=== PATIENT | female | born 1960 | race Caucasian/White ===

== ENCOUNTER 2016-12-24 09:55 | Inpatient (IN) | payer BC ==
[~2016-12-24] VITALS: Ht 172.7 cm; Wt 94.3 kg
[2016-12-24] MEDS ORDERED: NYSTATIN (10:24)
[2016-12-24] MEDS ORDERED: OXYC-128 PO (10:24)
[2016-12-24] MEDS ORDERED: HYDR200T PO (10:24)
[2016-12-24 10:27] LABS: BASOPHILS # (AUTO) 0.1 K/uL (0.0-8.0); BASOPHILS % (AUTO) 0.8 % (0.0-2.0); EOSINOPHILS # (AUTO) 0.1 K/uL (0.0-0.7); EOSINOPHILS % (AUTO) 1.5 % (0.0-7.0); HEMATOCRIT 38.6 % (37-47); HEMOGLOBIN 12.7 G/DL (12.0-16.0); LYMPHOCYTES # (AUTO) 3.6 K/UL (0.8-4.8); MEAN CORPUSCULAR HEMOGLOBIN 31.5 UUG (27.0-31.0); MEAN CORPUSCULAR HGB CONC 33 g/dL (32.0-37.0); MEAN CORPUSCULAR VOLUME 95.4 FL (81.0-99.0); MONOCYTES # (AUTO) 0.9 K/UL (0.1-1.30); MONOCYTES % (AUTO) 9.2 % (0.0-11.0); NEUTROPHILS # (AUTO) 4.8 K/UL (1.8-8.9); NEUTROPHILS % (AUTO) 50.5 % (38.5-71.5); PLATELET COUNT (AUTO) 198 K/UL (150-450); RED BLOOD CELL COUNT(AUTO) 4.04 MIL/UL (4.2-5.4); WHITE BLOOD COUNT (AUTO) 9.4 K/UL (4.0-11.2)
--- NOTE | 2016-12-24 10:39 | NUR ---
Patient is AOx4, c/o tolerable upper back pains after changing to upright position, refusing pain medicines at this time. Comfort and safety measures maintained.
[2016-12-24 10:41] LABS: CREATININE 0.9 mg/dL (0.6-1.3); POTASSIUM 3.9 mmol/L (3.5-5.1)
[2016-12-24 10:46] LABS: BILIRUBIN,DIRECT 0.1 mg/dL (0.0-0.2); BILIRUBIN,TOTAL 0.3 mg/dL (0.2-1.0); TOTAL PROTEIN, SERUM 6.5 g/dL (6.4-8.2)
[2016-12-24] MEDS ORDERED: ONDANSETRON 4 MG/2 ML VIAL IV PRN (11:30)
[2016-12-24] MEDS ORDERED: ALBUTEROL SULFATE 2.5 MG/ 0.5 ML NEBU NEB PRN ×2 (11:30→11:45)
[2016-12-24] MEDS ORDERED: MORPHINE SULFATE 2 MG/1 ML DISP.SYRIN IV PRN ×2 (11:30→11:45)
[2016-12-24] MEDS ORDERED: IPRATROPIUM BROMIDE 0.5 MG/2.5 ML NEBU NEB PRN ×2 (11:30→11:45)
[2016-12-24] MEDS ORDERED: LEVOFLOXACIN 500 MG/D5W 100ML PIGGYBACK IV ONE ×2 (11:30)
[2016-12-24] MEDS ORDERED: OXYCODONE/APAP 5-325 MG TABLET PO PRN ×2 (11:30→11:45)
[2016-12-24] MEDS ORDERED: ACETAMINOPHEN 325 MG TABLET PO PRN ×2 (11:30→11:45)
--- NOTE | 2016-12-24 11:34 | NUR ---
Patient requested oxygen, notified
--- NOTE | 2016-12-24 11:45 | NUR ---
Admitted a 56 year old female patient from [facility] under the service of Dr. Todd Short with admitting diagnosis of Pneumothorax and Pleural Effusion, who was transported by ER staff on a hospital bed in stable condition with BP: 115/70 mmHg, Heart rate: 79, Temperature: 98.3 F. all admission orders were clarified and verified from Sandra Orozco NP, noted and carried out. All needs were attended and anticipated. call light placed within reach. patient was oriented to hospital room. Patient was accompanied by her friend. No SOB, distress at this time. Will continue to monitor.
[2016-12-24 11:58] VITALS: BP 121/68
--- NOTE | 2016-12-24 12:30 | NUR ---
PATIENT ADMITTED WITH INCISION SITES ON BOTH LATERAL CHEST WITH JOSUÉ BRAY DRAIN WITH SEROSANGUINEOUS DRAINAGE, NOTED DRY DRESSING. PATIENT REFUSED DRESSING CHANGE EXPLAINED RISKS AND BENEFITS STILL PATIENT REFUSED DRESSING CHANGE AND PHOTO TO BE TAKEN. CHARGE NURSE NOTIFIED. WILL INFORM INCOMING SHIFT.
[2016-12-24] MEDS ORDERED: NITROGLYCERIN 0.4 MG/TAB BOTTLE SL PRN (12:45)
[2016-12-24] MEDS: LEVOFLOXACIN 500 MG/D5W 500 MG in PREMIXED 1 EACH IV SCH (13:31)
[2016-12-24] MEDS ORDERED: MAGNESIUM HYDROXIDE 30 ML LIQUID UDC PO ONE (14:15)
--- NOTE | 2016-12-24 14:25 | NUR ---
Spoke to Dr. Melecio Rodriguez's office regarding transferring patient back to [facility]. Waiting to see if Dr. Rodriguez will be willing to be the admitting physician upon transfer.
--- NOTE | 2016-12-24 14:43 | NUR ---
Spoke to admitting at [facility] and Dr. Rodriguez is accepting patient back upon transfer. However telemetry bed will most likely not be available today.Clinicals faxed to , personal service workers--Marli. Contact number
--- NOTE | 2016-12-24 15:36 | NUR ---
Referred by diet office to visit patient, as family request to speak with dietitian. Obtained food preferences,will honor. Patient is gluten free,diet has been modified at [facility] [place]. Per JOSEPH notes, plan is to transfer to [facility]. Diet: regular/gluten free Anthropometry:current weight 208lb, BMI 31.6 Will monitor PO intake,wt,labs Addendum: 12/24/16 at [address] Amended: Links added.
[2016-12-24] MEDS: HYDROMORPHONE 1 MG/1 ML DISP.SYRIN IV PRN ×2 (15:41→20:02)
[2016-12-24] MEDS: DOCUSATE SODIUM 100 MG CAPSULE PO SCH ×2 (15:46→20:02)
--- NOTE | 2016-12-24 15:57 | NUR ---
Patient has decided to stay here at [facility] per the reccommedation of her MD, Dr. Melecio Rodriguez as well as our hospitalist. Patient is feeling much better now that she has received her Dilaudid. Notified Maria Eugenia at [facility], [facility]. Spoke to both patients daughter and long time friend. Agreeable to plan at this time.
[2016-12-24] MEDS ORDERED: HYDROXYCHLOROQUINE SULFATE 200 MG TABLET PO SCH ×2 (17:00)
[2016-12-24 17:02] VITALS: BP 101/64
--- NOTE | 2016-12-24 18:58 | NUR ---
Patient alert and oriented lying on bed on a semi- maldonado's position, no complaints of pain at this time, no SOB noted. All needs were attended and anticipated. Call light placed within reach. Encouraged patient to use call light whenever assistance is needed. Will endorse to incoming shift.
[2016-12-24] MEDS ORDERED: ALBUTEROL SULFATE 2.5 MG/3 ML NEBU NEB SCH (19:30)
[2016-12-24] MEDS: ALBUTEROL SULFATE 2.5 MG/ 0.5 ML NEBU NEB SCH (19:51)
[2016-12-24] MEDS: IPRATROPIUM BROMIDE 0.5 MG/2.5 ML NEBU NEB SCH (19:51)
--- NOTE | 2016-12-24 20:00 | NUR ---
Patient in bed awake alert & oriented no SOB denies chest pain. Stil c/o bilateral breast incision site discomfort 10/10 pain level. JONAH drains x2 intact, noted serosanguinous moderate output. Telemetry shows normal sinus rhtyhm, vital signs are stable stable.
[2016-12-24] MEDS: ONDANSETRON 4 MG/2 ML VIAL IV PRN (20:02)
[2016-12-24] MEDS: HYDROXYCHLOROQUINE SULFATE 200 MG TABLET PO SCH (20:04)
[2016-12-24 20:15] VITALS: BP 134/78
[2016-12-24] MEDS: OXYCODONE/APAP 5-325 MG TABLET PO PRN (21:52)
[2016-12-25 00:22] VITALS: BP 150/72
--- NOTE | 2016-12-25 03:50 | NUR ---
Awake, assisted to the bathroom & patient voided. Exertional SOB noted. Assisted back to bed & paged RT. Breathing treatment provided. Tele sinus rhythm.
[2016-12-25 04:32] VITALS: BP 156/78
[2016-12-25] MEDS: PANTOPRAZOLE SODIUM 40 MG TABLET.DR PO SCH (06:22)
[2016-12-25] MEDS: ONDANSETRON 4 MG/2 ML VIAL IV PRN (06:54)
[2016-12-25] MEDS: HYDROMORPHONE 1 MG/1 ML DISP.SYRIN IV PRN ×5 (06:54→23:38)
--- NOTE | 2016-12-25 07:00 | NUR ---
Assisted w/ all needs. Medicated for pain PRN. Sinus rhythm on the monitor.
--- NOTE | 2016-12-25 07:00 | NUR ---
Pt is sitting in bed comfortably. No s/s of respiratory distress noted. No pain noted. Iv intact/patent. All safety needs are met. Pt is alert and oriented x 3, pt is noted to be anxious.
[2016-12-25] MEDS: IPRATROPIUM BROMIDE 0.5 MG/2.5 ML NEBU NEB SCH ×3 (07:12→22:28)
[2016-12-25] MEDS: ALBUTEROL SULFATE 2.5 MG/ 0.5 ML NEBU NEB SCH ×3 (07:12→22:28)
[2016-12-25] MEDS: HYDROXYCHLOROQUINE SULFATE 200 MG TABLET PO SCH ×2 (09:00→20:12)
[2016-12-25] MEDS: DOCUSATE SODIUM 100 MG CAPSULE PO SCH ×2 (09:28→20:10)
[2016-12-25 09:32] LABS: BASOPHILS % (AUTO) 0.7 % (0.0-2.0); EOSINOPHILS # (AUTO) 0.1 K/uL (0.0-0.7); EOSINOPHILS % (AUTO) 2.5 % (0.0-7.0); HEMOGLOBIN 12.8 G/DL (12.0-16.0); LYMPHOCYTES # (AUTO) 2.3 K/UL (0.8-4.8); LYMPHOCYTES % (AUTO) 39.7 % (20.5-51.5); MEAN CORPUSCULAR HEMOGLOBIN 32.1 UUG (27.0-31.0); MEAN CORPUSCULAR HGB CONC 34 g/dL (32.0-37.0); MEAN CORPUSCULAR VOLUME 95.6 FL (81.0-99.0); MONOCYTES # (AUTO) 0.5 K/UL (0.1-1.30); MONOCYTES % (AUTO) 8.3 % (0.0-11.0); NEUTROPHILS # (AUTO) 2.8 K/UL (1.8-8.9); NEUTROPHILS % (AUTO) 48.8 % (38.5-71.5); PLATELET COUNT (AUTO) 188 K/UL (150-450); RED BLOOD CELL COUNT(AUTO) 3.97 MIL/UL (4.2-5.4); WHITE BLOOD COUNT (AUTO) 5.7 K/UL (4.0-11.2)
[2016-12-25 09:58] LABS: BILIRUBIN,TOTAL 0.5 mg/dL (0.2-1.0); CREATININE 0.9 mg/dL (0.6-1.3); MAGNESIUM 2.1 mg/dL (1.8-2.4); PHOSPHOROUS 3.9 mg/dL (2.5-4.9); POTASSIUM 3.7 mmol/L (3.5-5.1); TOTAL PROTEIN, SERUM 6.7 g/dL (6.4-8.2)
[2016-12-25 11:07] VITALS: BP 139/69
--- NOTE | 2016-12-25 11:40 | NUR ---
ARA Flores is here to see the pt. Report is given to CONDITIONING MACHINE OPERATOR.
--- NOTE | 2016-12-25 11:44 | NUR ---
PER LACEY, BARTACKER CHANGE DILAUDID TO Q3H INSTEAD OF Q4H
[2016-12-25] MEDS ORDERED: GLYCERIN ADULT RECTAL SUPP EACH RC PRN (12:00)
--- NOTE | 2016-12-25 12:19 | NUR ---
PER DR. CARRILLO KEEP THE PT ON NASAL CANULA OR OXYGEN MASK AT 6L HUMIDIFIED AIR
--- NOTE | 2016-12-25 13:00 | NUR ---
LEFT JONAH DRAIN IS 23 ML OU, 26 ML OUT
[2016-12-25] MEDS: LEVOFLOXACIN 500 MG/D5W 500 MG in PREMIXED 1 EACH IV SCH (13:08)
[2016-12-25] MEDS ORDERED: MAGNESIUM HYDROXIDE 30 ML LIQUID UDC PO PRN (14:15)
--- NOTE | 2016-12-25 19:55 | NUR ---
PT IS LAYING IN BED COMFORTABLY, WOUND CARE IS DONE. NO S/S OF RESPIRATORY DISTRESS NOTED. ALL SAFETY NEEDS ARE MET.
[2016-12-25 20:00] VITALS: BP 155/74
--- NOTE | 2016-12-25 20:00 | NUR ---
RECEIVED PATIENT SEATED IN THE CHAIR, GIRLFRIEND AT CHAIR SIDE, NO SOB NO CHEST PAIN NOTED, JOSUÉ BRAY IN PLACE, DRESSING INTACT, CONT ON PAIN MANAGEMENT, OXYGEN SAT WNL, CONT TO MONITOR.
--- NOTE | 2016-12-25 23:20 | NUR ---
PATIENT COMPLAINING OF STUBBING CHEST AND BACK PAIN, V/S 174/87. HR 81, OXYGEN SAT 99% AT 6 LITERS NC, NOTIFY DR. BROWNING. MEDICATED PATIENT FOR PAIN 3 HRS AGO. CONT TO MONITOR.
--- NOTE | 2016-12-25 23:30 | NUR ---
PATIENT AWAKE ALERT, MEDICATED FOR PAIN, V/S 155/77, HR 79, OXYGEN SAT 99% AT 6 LITERS NC, DR. ROBERSON WITH ORDER CXR, CONT TO MONITOR.
[2016-12-26] MEDS: HYDROMORPHONE 1 MG/1 ML DISP.SYRIN IV PRN ×6 (03:18→20:47)
[2016-12-26 04:00] VITALS: BP 141/72
[2016-12-26] MEDS: PANTOPRAZOLE SODIUM 40 MG TABLET.DR PO SCH (06:10)
--- NOTE | 2016-12-26 06:25 | NUR ---
PATIENT SLEPT ON AND OFF, CONT ON PAIN MANAGEMENT, NO SOB NO CHEST PAIN, SINUS RHYTHM ALL NIGHTS, CXR STAT DONE WITH NO PNEUMOTHORAX RESULTS, CALL LIGHT WITHIN REACH, Heather BRAY DRAINING WELL, DRESSING INTACT, ASSISTED WITH TOILETING, CALL LIGHT WITHIN REACH.
[2016-12-26 06:43] LABS: BASOPHILS % (AUTO) 0.5 % (0.0-2.0); EOSINOPHILS # (AUTO) 0.1 K/uL (0.0-0.7); EOSINOPHILS % (AUTO) 2.3 % (0.0-7.0); HEMATOCRIT 34.8 % (37-47); HEMOGLOBIN 11.9 G/DL (12.0-16.0); LYMPHOCYTES # (AUTO) 1.9 K/UL (0.8-4.8); LYMPHOCYTES % (AUTO) 38.5 % (20.5-51.5); MEAN CORPUSCULAR HEMOGLOBIN 32.8 UUG (27.0-31.0); MEAN CORPUSCULAR HGB CONC 34 g/dL (32.0-37.0); MEAN CORPUSCULAR VOLUME 96.1 FL (81.0-99.0); MONOCYTES # (AUTO) 0.4 K/UL (0.1-1.30); NEUTROPHILS # (AUTO) 2.5 K/UL (1.8-8.9); NEUTROPHILS % (AUTO) 50.7 % (38.5-71.5); PLATELET COUNT (AUTO) 190 K/UL (150-450); RED BLOOD CELL COUNT(AUTO) 3.62 MIL/UL (4.2-5.4); WHITE BLOOD COUNT (AUTO) 4.9 K/UL (4.0-11.2)
[2016-12-26 06:53] LABS: BILIRUBIN,TOTAL 0.4 mg/dL (0.2-1.0); CREATININE 0.8 mg/dL (0.6-1.3); MAGNESIUM 1.9 mg/dL (1.8-2.4); PHOSPHOROUS 4.1 mg/dL (2.5-4.9)
[2016-12-26 07:16] LABS: THYROID STIMULATING HORMONE 2.556 mIU/mL (0.358-3.740)
[2016-12-26] MEDS: IPRATROPIUM BROMIDE 0.5 MG/2.5 ML NEBU NEB SCH ×2 (07:16→13:29)
[2016-12-26] MEDS: ALBUTEROL SULFATE 2.5 MG/ 0.5 ML NEBU NEB SCH ×2 (07:16→13:29)
--- NOTE | 2016-12-26 07:30 | NUR ---
on bed, resting, relief from pain verbalized. no respiratory distress noted. aware npo for us kidney, verbalized understanding. receiving RT tx for now.
--- NOTE | 2016-12-26 08:45 | NUR ---
anxious for later time of procedure since npo after midnight. Xray aware of concern and procedure will be done this am. patient aware and appreciative
[2016-12-26] MEDS: HYDROXYCHLOROQUINE SULFATE 200 MG TABLET PO SCH ×2 (09:00→20:57)
[2016-12-26] MEDS ORDERED: MAGNESIUM HYDROXIDE 30 ML LIQUID UDC PO ONE (10:00)
[2016-12-26] MEDS ORDERED: GLYCERIN ADULT RECTAL SUPP EACH RC ONE (10:00)
--- NOTE | 2016-12-26 10:00 | NUR ---
us done at bedside, tolerated poorly. upset with linens and towel around her, towel with jelly for us. verbalized need to eat after assistance for brp. up on chair for late breakfast, am meds to follow. requested bed linen change but recently change by cristopher abreu and patient agreed for no need to change. provided teas and water, watermelon as requested. seen by ARA Orozco. friend at bedside, supportive of patient care.
[2016-12-26 11:00] VITALS: BP 180/92
--- NOTE | 2016-12-26 11:00 | NUR ---
seen by dr meyer, concerns regarding meds plaquenil and pain meds verified and agreed without change of order. meds for constipation given pending result. med for complaint of pain , bp elevated and dr meyer aware. bp 180/92 hr 69, medicated for pain
[2016-12-26] MEDS: DOCUSATE SODIUM 100 MG CAPSULE PO SCH ×2 (11:01→20:47)
--- NOTE | 2016-12-26 11:10 | NUR ---
off o2, refused ...
[2016-12-26 11:59] VITALS: BP 146/69
--- NOTE | 2016-12-26 12:30 | NUR ---
JONAH DRAIN EMPTIED LEFT 28ML, RIGHT 23ML, INCISION BOTH BREAST CLEAN AND DRY, NO SIGNS OF INFECTION NOTED.
[2016-12-26] MEDS: LEVOFLOXACIN 500 MG TABLET PO SCH (13:06)
--- NOTE | 2016-12-26 14:00 | NUR ---
COMPLAINT OF PALPITATION , SHAKINESS AND CHEST DISCOMFORT LIKE THE START OF HER PNEUMOTHORAX BUT NO SOB NOTED. , RECENTLY RECEIVED ALBUTEROL . HR 86, ON 02 AT 6L NC. AFTER DISCUSSION WITH THE USUAL SIDE EFFECT OF ALBUTEROL, ABLE TO RATIONALIZE SELF OF JUST THE SIDE EFFECT OF ALBUTEROL AND NOT RECURRENCE OF PNEUMOTHORAX. CONT NO SOB, WILL MONITOR.
--- NOTE | 2016-12-26 14:15 | NUR ---
SCANNED PAIN MED, DILAUDID, NOTED IN THIS COMPUTER, PREVIOUS COMPUTER NON FUNCTIONAL.
--- NOTE | 2016-12-26 17:14 | NUR ---
OOB AMBULATING ROOM , LOOKED OUT OF ROOM AND AMBULATED, FEELS LITTLE BETTER STANDING AND WALKING.
--- NOTE | 2016-12-26 18:24 | NUR ---
RESTING WELL. RELIEF FROM PAIN MEDS VERBALIZED. APPRECIATIVE OF NAP TAKEN EARLIER, ABLE TO NAP X 2 HOURS. [phone]
[2016-12-26] MEDS: LEVALBUTEROL HCL NEB 0.63 MG/3 ML NEBU NEB SCH (19:18)
--- NOTE | 2016-12-26 19:34 | NUR ---
JONAH DRAIN LEFT 38ML, RIGHT 33 ML, SEROSANGUINOUS
[2016-12-26 20:26] VITALS: BP 152/73
[2016-12-27] MEDS: HYDROMORPHONE 1 MG/1 ML DISP.SYRIN IV PRN ×7 (00:02→20:15)
[2016-12-27] MEDS: ONDANSETRON 4 MG/2 ML VIAL IV PRN ×2 (00:06→21:40)
[2016-12-27 00:20] VITALS: BP 127/65
[2016-12-27] MEDS: LEVALBUTEROL HCL NEB 0.63 MG/3 ML NEBU NEB SCH ×5 (01:30→19:30)
[2016-12-27 04:00] VITALS: BP 159/72
[2016-12-27] MEDS: PANTOPRAZOLE SODIUM 40 MG TABLET.DR PO SCH (06:24)
--- NOTE | 2016-12-27 06:30 | NUR ---
PT SLEPT INTERMITTENTLY, IN NO ACUTE DISTRESS. PATIENT IS ON TELE - SINUS RHYTHM. PAIN MANAGEMENT ORDERED. JONAH DRAIN ON BILATERAL LATERAL CHEST PATENT/INTACT, DRAINING SEROSANGINOUS FLUID. DRESSING ON BILATERAL LATERAL CHEST INTACT/DRY. ASSISTED WITH TOILETING NEEDS. ALL NEEDS MET. SAFETY MEASURES IN PLACE, CALL LIGHT WITHIN REACH. WILL CONTINUE TO MONITOR.
--- NOTE | 2016-12-27 07:30 | NUR ---
AT EDGE OF THE BED, DANGLE, HAVING BREAKFAST. VERBALIZED FEELING BETTER. NEEDS PROVIDED, APPRECIATIVE.
--- NOTE | 2016-12-27 08:00 | NUR ---
OOB BRP, AM ASSISTED. ON CHAIR WHILE BED LINEN CHANGED, ADDED BLANKET, NECK ROLL REQUESTED. RETURNED BACK TO BED REQUESTED, TOLERATED MOBILITY WELL. IS Q1HR DISCUSSED ,WILL MONITOR, ABLE TO TOLERATE X 5 1000ML. STATED FEELING MUCH BETTER TODAY THAN YESTERDAY.
[2016-12-27] MEDS: HYDROXYCHLOROQUINE SULFATE 200 MG TABLET PO SCH ×2 (09:00→20:08)
[2016-12-27] MEDS: DOCUSATE SODIUM 100 MG CAPSULE PO SCH ×2 (09:09→20:14)
[2016-12-27 10:59] LABS: BASOPHILS % (AUTO) 0.5 % (0.0-2.0); EOSINOPHILS # (AUTO) 0.2 K/uL (0.0-0.7); EOSINOPHILS % (AUTO) 3.5 % (0.0-7.0); HEMATOCRIT 34.3 % (37-47); HEMOGLOBIN 11.7 G/DL (12.0-16.0); LYMPHOCYTES # (AUTO) 2.3 K/UL (0.8-4.8); LYMPHOCYTES % (AUTO) 36.4 % (20.5-51.5); MEAN CORPUSCULAR HEMOGLOBIN 33.1 UUG (27.0-31.0); MEAN CORPUSCULAR HGB CONC 34 g/dL (32.0-37.0); MEAN CORPUSCULAR VOLUME 96.9 FL (81.0-99.0); MONOCYTES # (AUTO) 0.5 K/UL (0.1-1.30); MONOCYTES % (AUTO) 8.5 % (0.0-11.0); NEUTROPHILS # (AUTO) 3.2 K/UL (1.8-8.9); NEUTROPHILS % (AUTO) 51.1 % (38.5-71.5); PLATELET COUNT (AUTO) 190 K/UL (150-450); RED BLOOD CELL COUNT(AUTO) 3.54 MIL/UL (4.2-5.4); WHITE BLOOD COUNT (AUTO) 6.2 K/UL (4.0-11.2)
--- NOTE | 2016-12-27 11:00 | NUR ---
resting on bed, sleeping comfortably
[2016-12-27 11:13] LABS: BILIRUBIN,TOTAL 0.3 mg/dL (0.2-1.0); CREATININE 0.8 mg/dL (0.6-1.3); MAGNESIUM 1.9 mg/dL (1.8-2.4); PHOSPHOROUS 3.1 mg/dL (2.5-4.9)
[2016-12-27 12:00] VITALS: BP 145/82
[2016-12-27] MEDS: LEVOFLOXACIN 500 MG TABLET PO SCH (12:29)
--- NOTE | 2016-12-27 13:30 | NUR ---
friend derek at bedside, supportive of patient care. discussed plan of care with dr medley, will stay one more day.
--- NOTE | 2016-12-27 14:15 | NUR ---
chitra drain right 20 ml, left 18 ml
--- NOTE | 2016-12-27 15:30 | NUR ---
set up for shower as okeyed with surgical md dr House awaiting patient when ready
--- NOTE | 2016-12-27 17:00 | NUR ---
patient change mind for shower, sponge bath done again by friend. patient felt comfortable.
[2016-12-27 17:04] VITALS: BP 147/79
--- NOTE | 2016-12-27 18:19 | NUR ---
feels better, no acute respiratory distress noted. relief from left chest discomfort verbalized. anxious to go home depending how she feels tomorrow and continue follow up with own surgical md. incision breast remains clean and drying.
--- NOTE | 2016-12-27 19:30 | NUR ---
Pt a/o x 4 with complain of pain to left side near incision. JONAH drain noted 10cc to right and left site. States she feels nauseated with some discomfort. Next Dilauded to be given 2030. Denies any SOB. 02 Sat 98%. Continue to monitor.
[2016-12-27 20:10] VITALS: BP 154/78
--- NOTE | 2016-12-28 | NUR ---
Pt refuses to have Tele monitor at this time and wants to have a "break". States continuous pain to abdominal area. Pt requesting prn Dilaudid. Continue to monitor.
[2016-12-28] MEDS: HYDROMORPHONE 1 MG/1 ML DISP.SYRIN IV PRN ×2 (00:25→04:20)
[2016-12-28 01:05] LABS: *BILIRUBIN,URIN NEGATIVE (NEGATIVE); *BLOOD, URINE NEGATIVE (NEGATIVE); *CLARITY,URINE CLEAR (CLEAR); *COLOR,URINE STRAW (YELLOW); *KETONES,URINE NEGATIVE (NEGATIVE); *PROTEIN,URINE NEGATIVE (NEGATIVE); *UROBILINOGEN,URINE 0.2 E.U./dl (NORMAL); LEUKOCYTE ESTERASE ,URINE NEGATIVE (NEGATIVE); NITRITE, URINE NEGATIVE (NEGATIVE); PH,URINE 6.5 (5.0-8.0); UGLUCOSE NEGATIVE (NEGATIVE)
[2016-12-28] MEDS: LEVALBUTEROL HCL NEB 0.63 MG/3 ML NEBU NEB SCH ×2 (01:14→07:35)
[2016-12-28 01:27] LABS: BACTERIA,URINE NONE SEEN /HPF (NONE SEEN); RBC,URINE NONE SEEN /HPF (0-3); SQUAMOUS EPITHELIAL CELL,UR FEW /HPF (NONE SEEN); WBC,URINE 0-3 /HPF (0-3)
[2016-12-28 04:00] VITALS: BP 164/83
[2016-12-28] MEDS: PANTOPRAZOLE SODIUM 40 MG TABLET.DR PO SCH (06:16)
[2016-12-28 06:31] LABS: BASOPHILS % (AUTO) 0.4 % (0.0-2.0); EOSINOPHILS # (AUTO) 0.2 K/uL (0.0-0.7); EOSINOPHILS % (AUTO) 4.8 % (0.0-7.0); HEMOGLOBIN 11.3 g/dL (10.9-14.3); LYMPHOCYTES # (AUTO) 1.7 K/uL (20.0-40.0); LYMPHOCYTES % (AUTO) 36.2 % (20.5-51.5); MEAN CORPUSCULAR HEMOGLOBIN 32.9 uug (24.7-32.8); MEAN CORPUSCULAR HGB CONC 34 g/dL (32.3-35.6); MEAN CORPUSCULAR VOLUME 95.8 fL (75.5-95.3); MONOCYTES # (AUTO) 0.4 K/uL (2.0-10.0); MONOCYTES % (AUTO) 8.6 % (0.0-11.0); NEUTROPHILS # (AUTO) 2.4 K/uL (1.8-8.9); PLATELET COUNT (AUTO) 192 K/uL (179-408); RED BLOOD CELL COUNT(AUTO) 3.45 MIL/uL (3.63-4.92); WHITE BLOOD COUNT (AUTO) 4.7 K/uL (3.8-11.8)
[2016-12-28 06:40] LABS: BILIRUBIN,TOTAL 0.3 mg/dL (0.2-1.0); CREATININE 0.7 mg/dL (0.6-1.3); MAGNESIUM 1.8 mg/dL (1.8-2.4); PHOSPHOROUS 3.6 mg/dL (2.5-4.9); POTASSIUM 3.8 mmol/L (3.5-5.1); TOTAL PROTEIN, SERUM 5.8 g/dL (6.4-8.2)
[2016-12-28] MEDS: OXYCODONE/APAP 5-325 MG TABLET PO PRN ×2 (08:59→13:50)
[2016-12-28] MEDS: HYDROXYCHLOROQUINE SULFATE 200 MG TABLET PO SCH (10:47)
[2016-12-28] MEDS: DOCUSATE SODIUM 100 MG CAPSULE PO SCH (10:47)
[2016-12-28] MEDS ORDERED: ALBUTEROL SULFATE 2.5 MG/3 ML NEBU NEB PRN (11:15)
[2016-12-28 11:29] VITALS: BP 144/74
[2016-12-28] MEDS ORDERED: DOCU100C36 PO (13:14)
[2016-12-28] MEDS ORDERED: LEVO500T2 PO (13:14)
[2016-12-28] MEDS ORDERED: PANT40TA2 PO (13:14)
[2016-12-28] MEDS ORDERED: ALBU2.5V7 NEB (13:14)
[2016-12-28] MEDS: LEVOFLOXACIN 500 MG TABLET PO SCH ×2 (13:39→13:49)
[2016-12-28 15:24] VITALS: BP 106/86
--- NOTE | 2016-12-28 15:28 | NUR ---
Patient will receive a nebulizer upon discharge with needed medications. Prescriptions faxed to [facility]. Patient notified.
--- NOTE | 2016-12-28 15:30 | NUR ---
I/V D/C'D ALL HOME INSTRUCTIONS REVIEWED WITH PT.--PRECAUTIONS--SIGNS AND SYMPTOMS. HOME MEDS FAXED TO [facility]. PHARMACIST HERE TO REBVIEW ALL HOME MEDS. PT. STABLE, PAIN CONTROLLED AND ANXIOUS TO GO HOME. PT. HAS ALREADY SCHEDULED HER FOLLOW-UP VISITS AND STATES WILL CALL IF SHE NEEDS ANY FURTHER HELP WITH THAT. DISCHARGED TO FRIEND WHO WILL BE STAYING WITH HER.
--- NOTE | 2016-12-29 15:47 | NUR ---
Called [employer] [ ] and proceeded with the order for the Nebulizer and Xopenex. Spoke to Charleen and she confirmed that they will proceed with the order and request for the authorization. Followed up with Leena later this day and she confirmed that they are ready for delivery. Provided her with the patient's phone number [ ] and her girlfriend, Kirti [ ]. Called and spoke to the patient and [facility]. She is aware that we had contacted [facility] before she was discharged and they stated that they can provide both the nebulizer and the medication. She acknowledged June's mistake. Informed her that [facility] will contact her and Kirti on the delivery and provided her with [facility]s number. She was very thankful.
== END 2016-12-28 15:30 | disposition home or self-care (01) | DRG 200 ==
LOC: ER 10:05 → TELE 11:44 → MED 12-25 14:25 → TELE 12-26 17:50
PROVIDERS: ADMIT Internal Medicine; ATTEND Internal Medicine
DX: J95.811 Postprocedural pneumothorax (principal); E44.0 Moderate protein-calorie malnutrition; J90 Pleural effusion, not elsewhere classified; M33.13 Other dermatomyositis without myopathy; K75.4 Autoimmune hepatitis; J98.11 Atelectasis; K58.9 Irritable bowel syndrome, unspecified; Z85.3 Personal history of malignant neoplasm of breast; Y83.8 Other surgical procedures as the cause of abnormal reaction of the patient, or of later complication, without mention of misadventure at the time of the procedure; Y81.3 Surgical instruments, materials and general- and plastic-surgery devices (including sutures) associated with adverse incidents; Y92.89 Other specified places as the place of occurrence of the external cause; Z90.13 Acquired absence of bilateral breasts and nipples; R04.0 Epistaxis; Z68.31 Body mass index [BMI] 31.0-31.9, adult; Z90.49 Acquired absence of other specified parts of digestive tract; Z88.6 Allergy status to analgesic agent; Z91.041 Radiographic dye allergy status; E66.9 Obesity, unspecified; K76.0 Fatty (change of) liver, not elsewhere classified; Z86.79 Personal history of other diseases of the circulatory system; D64.9 Anemia, unspecified; G89.18 Other acute postprocedural pain
CPT/HCPCS: 36415; 70030-TC; 71010; 74000; 76705; 78579; 83735; 84100; 84443; 85025; 85730; 87086; 93005; 93307; 94640; 94664; A4663; A9540; A9567; J1170; J1956; J2405; J3590; J7040; J7614

== ENCOUNTER 2016-12-29 01:22 | Emergency (ER) | payer BC ==
[~2016-12-29] VITALS: Ht 172.7 cm; Wt 93.4 kg
[~2016-12-29 01:22] MED LIST: ALBU2.5V7 NEB; DOCU100C36 PO; HYDR200T PO; LEVO500T2 PO; NYSTATIN; OXYC-128 PO; PANT40TA2 PO
--- NOTE | 2016-12-29 01:48 | NUR ---
Pt to room via w/c. Pt c/o shortness of breath and left sided chest pain. Pt was discharged from the hospital earlier today after being treated for pneumothorax and bilat total mastectomy. Pt has bilat drainage tubes to each flank. pt changed into gown an dplaced on monitor. NSR. Resp even and unlabored. Lungs CTA. Pt speaking softly but speaking full sentences. Pt seen by Dr. Sexton. EKG obtained.
[2016-12-29 01:57] LABS: BASOPHILS % (AUTO) 0.7 % (0.0-2.0); EOSINOPHILS # (AUTO) 0.3 K/uL (0.0-0.7); EOSINOPHILS % (AUTO) 5.1 % (0.0-7.0); HEMATOCRIT 35.5 % (37-47); LYMPHOCYTES % (AUTO) 33.8 % (20.5-51.5); MEAN CORPUSCULAR HEMOGLOBIN 32.3 UUG (27.0-31.0); MEAN CORPUSCULAR HGB CONC 34 g/dL (32.0-37.0); MONOCYTES # (AUTO) 0.4 K/UL (0.1-1.30); MONOCYTES % (AUTO) 6.8 % (0.0-11.0); NEUTROPHILS # (AUTO) 3.1 K/UL (1.8-8.9); NEUTROPHILS % (AUTO) 53.6 % (38.5-71.5); PLATELET COUNT (AUTO) 234 K/UL (150-450); WHITE BLOOD COUNT (AUTO) 5.8 K/UL (4.0-11.2)
[2016-12-29 02:34] LABS: BILIRUBIN,DIRECT 0.1 mg/dL (0.0-0.2); BILIRUBIN,TOTAL 0.1 mg/dL (0.2-1.0); CREATININE 0.8 mg/dL (0.6-1.3); POTASSIUM 3.7 mmol/L (3.5-5.1); TOTAL PROTEIN, SERUM 5.9 g/dL (6.4-8.2)
--- NOTE | 2016-12-29 02:40 | NUR ---
pt to CT via osorio
[2016-12-29] MEDS ORDERED: OXYCODONE/APAP 5-325 MG TABLET PO ONE (02:45)
--- NOTE | 2016-12-29 03:14 | NUR ---
Pt returned from CT via gurney. Pt c/o severe pain, requested dilaudid. Dr. Sexton notified and pt medicated. Pt repositioned for comfort. Will monitor for effects of medication.
[2016-12-29] MEDS ORDERED: HYDROMORPHONE 1 MG/1 ML DISP.SYRIN IV ONE (03:15)
[2016-12-29] MEDS ORDERED: HYDROMORPHONE 1 MG/1 ML DISP.SYRIN ONE (03:23)
--- NOTE | 2016-12-29 03:45 | NUR ---
Pt sts pain is improving slightly from previous medications. Pt resting in position of comfort for self. Resp even and unlabored. No obvious signs of distress at this time.
--- NOTE | 2016-12-29 04:35 | NUR ---
Pt stable for discharge per Dr. Sexton. IV dc'd, catheter intact, drsg applied. No problems noted to the site. Pt given ACI and verbalized understanding of dc instructions. Pt ambulated out of ER with slow steady gait and ride home
[2016-12-29 05:02] VITALS: BP 132/71
== END 2016-12-29 04:35 | disposition home or self-care (01) ==
LOC: ER 01:24
DX: J90 Pleural effusion, not elsewhere classified (principal); R74.0 Nonspecific elevation of levels of transaminase and lactic acid dehydrogenase [LDH]; K58.9 Irritable bowel syndrome, unspecified; K75.4 Autoimmune hepatitis; Z85.3 Personal history of malignant neoplasm of breast
CPT/HCPCS: 36415; 70030-TC; 71250; 85025; 85730; 93005; A4663; J1170

== ENCOUNTER 2017-01-13 18:28 | Emergency (ER) | payer BC ==
[~2017-01-13] VITALS: Ht 172.7 cm; Wt 92.5 kg
--- NOTE | 2017-01-13 18:45 | NUR ---
DR PATIÑO AT THE BEDSIDE FOR EVAL AND EXAM.
[2017-01-13] MEDS ORDERED: DOCU-141 PO (18:48)
--- NOTE | 2017-01-13 19:30 | NUR ---
NEW IV PLACED RIGHT WRIST -#22 ANGIO - SALINE LOCK - LAB DRAWN AND SENT
[2017-01-13 19:42] LABS: BASOPHILS # (AUTO) 0.1 K/uL (0.0-8.0); BASOPHILS % (AUTO) 0.9 % (0.0-2.0); EOSINOPHILS # (AUTO) 0.3 K/uL (0.0-0.7); EOSINOPHILS % (AUTO) 4.6 % (0.0-7.0); HEMATOCRIT 43.1 % (37-47); HEMOGLOBIN 14.5 G/DL (12.0-16.0); LYMPHOCYTES # (AUTO) 2.5 K/UL (0.8-4.8); LYMPHOCYTES % (AUTO) 45.2 % (20.5-51.5); MEAN CORPUSCULAR HEMOGLOBIN 32.1 UUG (27.0-31.0); MEAN CORPUSCULAR HGB CONC 34 g/dL (32.0-37.0); MEAN CORPUSCULAR VOLUME 95.2 FL (81.0-99.0); MONOCYTES # (AUTO) 0.4 K/UL (0.1-1.30); MONOCYTES % (AUTO) 6.1 % (0.0-11.0); NEUTROPHILS # (AUTO) 2.5 K/UL (1.8-8.9); NEUTROPHILS % (AUTO) 43.2 % (38.5-71.5); PLATELET COUNT (AUTO) 283 K/UL (150-450); RED BLOOD CELL COUNT(AUTO) 4.53 MIL/UL (4.2-5.4); WHITE BLOOD COUNT (AUTO) 5.8 K/UL (4.0-11.2)
[2017-01-13 19:48] LABS: CREATININE 0.8 mg/dL (0.6-1.3); POTASSIUM 3.9 mmol/L (3.5-5.1)
[2017-01-13 20:01] LABS: BILIRUBIN,DIRECT 0.1 mg/dL (0.0-0.2); BILIRUBIN,TOTAL 0.4 mg/dL (0.2-1.0); TOTAL PROTEIN, SERUM 7.4 g/dL (6.4-8.2)
--- NOTE | 2017-01-13 20:30 | NUR ---
pt reports pain continues at "7" from around three this after-noon / statesshe doesn't want pain med / stating " I'm ok " without grimace
--- NOTE | 2017-01-13 23:00 | NUR ---
pt continues with vs and ns small - pt reports symptoms unchanged -pain at " 7 " but does not want pain medication. - MD reports followup EKG unchanged
[2017-01-14 01:21] VITALS: BP 139/70
--- NOTE | 2017-01-14 01:22 | NUR ---
PT VOICES UNDERSTANDING OF DISCHARGE INSTRUCTIONS - ER workup results provided for pt's follow up with PMD -pt ambulating in good spirits
== END 2017-01-14 01:24 | disposition home or self-care (01) ==
LOC: ER 18:29
DX: J90 Pleural effusion, not elsewhere classified (principal); I47.1 Supraventricular tachycardia; M33.13 Other dermatomyositis without myopathy; Z85.3 Personal history of malignant neoplasm of breast; Z98.86 Personal history of breast implant removal; Z88.6 Allergy status to analgesic agent
CPT/HCPCS: 36415 ×2; 71010; 78579; 80048; 80076; 83880; 84484 ×2; 85025; 85379; 87040 ×2; 93005; 99285; A4663; A9540; A9567; 70030-TC

== ENCOUNTER 2017-01-26 15:54 | Emergency (ER) | payer BC ==
[~2017-01-26] VITALS: Ht 172.7 cm; Wt 91.2 kg
[~2017-01-26 15:54] MED LIST changes: -ALBU2.5V7 NEB; +DOCU-141 PO; -DOCU100C36 PO; -HYDR200T PO; -LEVO500T2 PO; -NYSTATIN; -OXYC-128 PO
[2017-01-26] MEDS ORDERED: LACT1CAP71 PO (16:15)
[2017-01-26] MEDS ORDERED: IBUP200C5 PO (16:15)
--- NOTE | 2017-01-26 16:47 | NUR ---
DR TRIMBLE AT BEDSIDE FOR EVAL.
[2017-01-26 17:06] LABS: BASOPHILS % (AUTO) 0.7 % (0.0-2.0); EOSINOPHILS # (AUTO) 0.2 K/uL (0.0-0.7); HEMOGLOBIN 13.4 G/DL (12.0-16.0); LYMPHOCYTES # (AUTO) 2.3 K/UL (0.8-4.8); LYMPHOCYTES % (AUTO) 38.6 % (20.5-51.5); MEAN CORPUSCULAR HEMOGLOBIN 30.8 UUG (27.0-31.0); MEAN CORPUSCULAR HGB CONC 33 g/dL (32.0-37.0); MEAN CORPUSCULAR VOLUME 93.9 FL (81.0-99.0); MONOCYTES # (AUTO) 0.6 K/UL (0.1-1.30); MONOCYTES % (AUTO) 9.8 % (0.0-11.0); NEUTROPHILS # (AUTO) 2.9 K/UL (1.8-8.9); NEUTROPHILS % (AUTO) 47.9 % (38.5-71.5); PLATELET COUNT (AUTO) 238 K/UL (150-450); RED BLOOD CELL COUNT(AUTO) 4.36 MIL/UL (4.2-5.4)
[2017-01-26 17:21] LABS: CREATININE 0.8 mg/dL (0.6-1.3)
[2017-01-26 17:26] LABS: BILIRUBIN,TOTAL 0.3 mg/dL (0.2-1.0); TOTAL PROTEIN, SERUM 6.9 g/dL (6.4-8.2)
--- NOTE | 2017-01-26 17:34 | NUR ---
AWAITING TEST RESULTS.
--- NOTE | 2017-01-26 19:14 | NUR ---
URINE SENT TO LAB. DR TRIMBLE AT BEDSIDE SPEAKING TO PATIENT.
[2017-01-26 19:34] LABS: *BILIRUBIN,URIN NEGATIVE (NEGATIVE); *BLOOD, URINE NEGATIVE (NEGATIVE); *CLARITY,URINE CLEAR (CLEAR); *COLOR,URINE YELLOW (YELLOW); *KETONES,URINE NEGATIVE (NEGATIVE); *PROTEIN,URINE NEGATIVE (NEGATIVE); *UROBILINOGEN,URINE 0.2 E.U./dl (NORMAL); LEUKOCYTE ESTERASE ,URINE NEGATIVE (NEGATIVE); NITRITE, URINE NEGATIVE (NEGATIVE); PH,URINE 6.5 (5.0-8.0); UGLUCOSE NEGATIVE (NEGATIVE)
[2017-01-26 19:40] LABS: BACTERIA,URINE NONE SEEN /HPF (NONE SEEN); RBC,URINE 0-3 /HPF (0-3); SQUAMOUS EPITHELIAL CELL,UR NONE SEEN /HPF (NONE SEEN); WBC,URINE 0-3 /HPF (0-3)
[2017-01-26 19:59] VITALS: BP 116/66
--- NOTE | 2017-01-26 19:59 | NUR ---
Patient discharged to home in stable conditon. Written and verbal after care instructions given. Patient verbalizes understanding of instructions.
== END 2017-01-26 20:00 | disposition home or self-care (01) ==
LOC: ER 15:54
DX: J90 Pleural effusion, not elsewhere classified (principal); I47.1 Supraventricular tachycardia; Z90.13 Acquired absence of bilateral breasts and nipples; Z98.890 Other specified postprocedural states; Z88.6 Allergy status to analgesic agent
CPT/HCPCS: 36415; 71010; 80053; 81001; 82550; 84484; 85025; 85610; 87040 ×2; 93005; 99285; A4663; 70030-TC

== ENCOUNTER 2017-02-09 15:51 | Emergency (ER) | payer BC, MEDICAID ==
[~2017-02-09] VITALS: Ht 177.8 cm; Wt 88.5 kg
[~2017-02-09 15:51] MED LIST changes: -DOCU-141 PO; +IBUP200C5 PO; +LACT1CAP71 PO; -PANT40TA2 PO
[2017-02-09 17:09] LABS: BASOPHILS # (AUTO) 0.1 K/uL (0.0-8.0); BASOPHILS % (AUTO) 0.9 % (0.0-2.0); EOSINOPHILS # (AUTO) 0.1 K/uL (0.0-0.7); EOSINOPHILS % (AUTO) 2.3 % (0.0-7.0); HEMATOCRIT 40.4 % (31.2-41.9); HEMOGLOBIN 13.9 g/dL (10.9-14.3); LYMPHOCYTES # (AUTO) 2.7 K/uL (20.0-40.0); LYMPHOCYTES % (AUTO) 44.8 % (20.5-51.5); MEAN CORPUSCULAR HEMOGLOBIN 32.4 uug (24.7-32.8); MEAN CORPUSCULAR HGB CONC 34 g/dL (32.3-35.6); MEAN CORPUSCULAR VOLUME 94.1 fL (75.5-95.3); MONOCYTES # (AUTO) 0.4 K/uL (2.0-10.0); NEUTROPHILS # (AUTO) 2.7 K/uL (1.8-8.9); PLATELET COUNT (AUTO) 242 K/uL (179-408); RED BLOOD CELL COUNT(AUTO) 4.29 MIL/uL (3.63-4.92)
[2017-02-09 17:19] LABS: CREATININE 0.7 mg/dL (0.6-1.3); POTASSIUM 3.6 mmol/L (3.5-5.1)
[2017-02-09 17:51] VITALS: BP 124/72
--- NOTE | 2017-02-09 17:51 | NUR ---
Patient discharged to home in stable conditon. Written and verbal after care instructions given. Patient verbalizes understanding of instructions.
== END 2017-02-09 17:52 | disposition home or self-care (01) ==
LOC: ER 15:52
DX: R07.89 Other chest pain (principal); I47.1 Supraventricular tachycardia; J90 Pleural effusion, not elsewhere classified; Z88.6 Allergy status to analgesic agent
CPT/HCPCS: 36415; 70030-TC; 71010; 85025; 93005; A4663